=== PATIENT | female | born 1945 | race Caucasian/White ===

== ENCOUNTER 2017-11-22 23:35 | Emergency (ER) | payer OTHER, BC ==
[2017-11-22 23:41] VITALS: BP 167/95; PULSE 66; TEMP 98.2; BMI 24.2
--- NOTE | 2017-11-22 23:42 | PDOC ---
History of Present Illness - General Chief Complaint: Wound Stated Complaint: THINK I HAVE A TICK Time Seen by Provider: 11/22/17 23:40 History Source: Patient Exam Limitations: No Limitations - History of Present Illness Initial Comments: 11/22/17 23:40 No this is a 72-year-old female who comes in complaining of a tick on her left leg. Patient is unable to adequately see what is there but thinks it may be a tick. PAST MEDICAL HISTORY: no significant history PAST SURGICAL HISTORY: no significant history FAMILY HISTORY: no pertinant history SOCIAL HISTORY: Pt lives with family and is employed. MEDICATIONS: reviewed ALLERGIES: As per nursing notes Review of Systems General: No fevers or chills, no weakness, no weight loss HEENT: No change in vision. No sore throat,. No ear pain CardioVascular: No chest pain or shortness of breath Respiratory:No cough, or wheezing. Gastrointestinal: no nausea, vomitting, diarrhea or constipation, No rectal bleeding Genitourinary: No dysuria, hematuria, or frequency Musculoskeletal: No joint or muscle pain or swelling Neurologic: No headache, vertigo, dizziness or loss of consciousness Psychiatric: nor depression Skin: No rashes or easy bruising, possible tick as per history of present illness Endocrine: no increased thirst or abnormal weight change Allergic: no skin or latex allergy All other systems reviewed and normal GENERAL: The patient is awake, alert, and fully oriented, in no acute distress. HEAD: Normal with no signs of trauma. EYES: Pupils equal, round and reactive to light, extraocular movements intact, sclera anicteric, conjunctiva clear. EXTREMITIES: Normal range of motion, no edema. Area of concern for patient was viewed with good lighting and a magnifying glass. It is no tick it is simply a small blood blister. NEUROLOGICAL: Normal speech, normal gait. grossly intact PSYCH: Normal mood, normal affect. SKIN: Warm, Dry, normal turgor, no rashes or lesions noted. Assessment and plan: This is a 72-year-old female who came in thinking she may have a tick on her leg which is excellent just a blood blister. Skin is intact. Patient was reassured and told she can leave the area alone. Patient discharged home Past History - Past Medical History Allergies/Adverse Reactions: Allergies Allergy/AdvReac Type Severity Reaction Status Date / Time PAIN MEDS AdvReac Uncoded 11/22/17 23:36 Home Medications: Ambulatory Orders Atenolol 07/28/15 Lisinopril 07/28/15 Methocarbamol [Robaxin -] 500 mg PO BID #14 tablet 07/28/15 Cardiac Disorders: Yes (PALPITATIONS) - Suicide/Smoking/Psychosocial Hx Smoking History: Never smoked Have you smoked in the past 12 months: No Hx Alcohol Use: No Drug/Substance Use Hx: No Substance Use Type: None *DC/Admit/Observation/Transfer Diagnosis at time of Disposition: Blood blister - Discharge Dispostion Disposition: HOME Condition at time of disposition: Stable Decision to Admit order: No - Referrals - Patient Instructions Additional Instructions: No need to do anything regarding the blood blister on your leg it will resolve and heel on its own. Return to the emergency department immediately with ANY new, persistent or worsening symptoms. Continue any medications as previously prescribed by your physician. You should follow up with your primary doctor as soon as possible regarding today's emergency department visit. . Please make sure your doctor reviews the results of your emergency evaluation. Thank you for coming to the Emergency Department today for your care. It was a pleasure to see you today. Please note that your evaluation is INCOMPLETE until you follow-up with your doctor. - Post Discharge Activity
== END 2017-11-22 23:49 | disposition home or self-care (01) ==
LOC: FER 23:35
DX: S80.822A Blister (nonthermal), left lower leg, initial encounter (principal); X58.XXXA Exposure to other specified factors, initial encounter; Y93.9 Activity, unspecified; Y92.9 Unspecified place or not applicable
CPT/HCPCS: 99281-25